=== PATIENT | male | born 1980 | race Caucasian/White ===

== ENCOUNTER 2021-06-01 17:07 | Emergency (ER) | payer OTHER ==
[~2021-06-01] VITALS: Ht 165.1 cm; Wt 89.0 kg
[2021-06-01 17:10] VITALS: BP 128/82
== END 2021-06-01 21:40 | disposition home or self-care (01) ==
LOC: ER 17:07
DX: M25.531 Pain in right wrist (principal); E11.9 Type 2 diabetes mellitus without complications; I10 Essential (primary) hypertension; J45.909 Unspecified asthma, uncomplicated; Z88.2 Allergy status to sulfonamides; W01.0XXA Fall on same level from slipping, tripping and stumbling without subsequent striking against object, initial encounter; Y93.89 Activity, other specified; Y92.018 Other place in single-family (private) house as the place of occurrence of the external cause
CPT/HCPCS: 29125; 73110; 73130; 99284